=== PATIENT | male | born 1995 | race Caucasian/White ===

== ENCOUNTER 2019-08-23 17:14 | Emergency (ER) | payer OTHER, SELFPAY ==
[2019-08-23 17:34] VITALS: BP 142/79; PULSE 66; RESP 16; TEMP 36.9; O2SAT 97
--- NOTE | 2019-08-23 17:50 | ED.ABDPAIN ---
HPI - Abdominal Pain <BILLIE Mccall - Last Filed: 08/23/19 21:24> General Chief Complaint: Abdominal Pain Stated Complaint: abdominal pain, blood in stool, sent by [facility] Time Seen by Provider: 08/23/19 17:16 Source: patient Mode of arrival: Ambulatory Limitations: no limitations History of Present Illness HPI narrative: This is a 23-year-old male, former smoker, who presents to ED with chief complain of 3 day duration of mid above umbilical abdominal discomfort and he noticed small amount of dark red rectal bleeding this morning when he had loose bowel movements. Patient reports he has been drinking alcohol little too much and had vomiting asses for last 3 days. Patient has been taking [id number] omeprazole 20 mg daily for 3 days with Carafate for mL yesterday. Patient reports fever and chills which resolved after he eats. Patient denies chest pain, breathing difficulty, lightheadedness. Patient was vomiting acid this morning. Patient reports pain increases with eating acid food such as orange and when his stomach is empty. Patient reports pain improves with smoking marijuana, sitting up and eating. Patient reports has a history of stomach ulcer when he was in late teenage year from excessive alcohol drinking. Related Data Home Medications Medication Instructions Recorded Confirmed omeprazole magnesium [Prilosec OTC] 20 mg PO DAILY 08/23/19 08/23/19 sucralfate [Carafate] See Rx Instructions .ROUTE .COMPLEX 08/23/19 08/23/19 Allergies Allergy/AdvReac Type Severity Reaction Status Date / Time No Known Allergies Allergy Verified 08/23/19 17:42 Review of Systems <BILLIE Mccall - Last Filed: 08/23/19 21:24> Review of Systems Narrative: General: Denies (+) subjective fever, (+) chills, fatigue, malaise, sweats. HEENT: Denies sinus pain, ear pain, sore throat, difficulty swallowing, dizziness. Respiratory: Denies dyspnea, cough, wheezing, hemoptysis, sputum. Cardiovascular: Denies chest pain, palpitations, orthopnea, edema. Gastrointestinal: See HPI : Denies dysuria, frequency, incontinence, hematuria, urinary retention. Musculoskeletal: Denies weakness, joint pain or bony pain. Skin: Denies rash, skin lesions, or other. Neurologic: Denies weakness, headache, numbness, change in speech, confusion, seizures, incoordination. Psychiatric: No concerning psychosocial issues. 12-point review of systems is negative except for those stated above. Patient History <BILLIE Mccall - Last Filed: 08/23/19 21:24> Medical History (Updated 08/23/19 @ 20:10 by BILLIE Mccall) Gastric ulcer (Acute) Social History (Updated 08/23/19 @ 17:54 by BILLIE Mccall) Smoking Status: Former smoker alcohol intake: current substance use type: marijuana alcohol intake frequency: a few times a week Substance Use Type: does not use Exam <BILLIE Mccall - Last Filed: 08/23/19 21:24> Narrative Exam Narrative: General appearance: well developed, well nourished, in no acute distress. Head: normocephalic, atraumatic, no scalp lesions, non-tender. ENT: Hearing grossly intact. Nose without bleeding, purulent discharge or deviation. Mucous membrane moist, no mucosal lesion. Throat without erythema, tonsillar hypertrophy or exudate. Uvula in midline, airway patent. Neck/Thyroid: neck supple, full range of motion, no visible masses or meningeal signs. No JVD, non-tender without lymphadenopathy. Skin: no suspicious rashes, lesions over visible areas. Warm and dry and slightly pale in the face. Heart: no clubbing, no cyanosis, no edema. S1 and S2 normal. RRR w/o murmurs, clicks, or bruits. Lungs: Breathing even and unlabored. No stridor. No accessory muscles used. Able to speak in full sentences. Chest: normal shape and expansion. Neurologic: alert and oriented. Cognitive exam, LOGGER ALL ROUND and PNS grossly intact on informal exam. Psych: good eye contact, normal affect. Initial Vital Signs Initial Vital Signs: Vital Signs Temperature 98.4 F 08/23/19 17:34 Pulse Rate 66 08/23/19 17:34 Respiratory Rate 16 08/23/19 17:34 Blood Pressure 142/79 H 08/23/19 17:34 Pulse Oximetry 97 08/23/19 17:34 GI Palpation: soft, no hepatosplenomegaly, No hernia, No mass, No rigid and tender (mild TTP in epigastric region) Auscultation: normal bowel sounds Rectal Exam: normal sphincter tone, No fecal impaction, No fissure, heme positive stool (light color change), hemorrhoids (small external), No lesions and No mass <Azael Robb MD - Last Filed: 08/24/19 08:22> Initial Vital Signs Initial Vital Signs: Vital Signs Temperature 98.4 F 08/23/19 17:34 Pulse Rate 66 08/23/19 17:34 Respiratory Rate 16 08/23/19 17:34 Blood Pressure 142/79 H 08/23/19 17:34 Pulse Oximetry 97 08/23/19 17:34 Scores <[facility] - Last Filed: 08/23/19 21:24> GCS Hay coma scale eye opening: Spontaneous Maureen coma scale verbal response: Orientated Maureen coma scale motor response: Obey commands Maureen coma scale total score: 15 Course <[facility] - Last Filed: 08/23/19 21:24> Orders Ordered: Discontinued Medications Sodium Chloride (Normal Saline 0.9%) 1,000 mls @ 1,000 mls/hr IV BOLUS ONE Stop: 08/23/19 18:35 Last Infusion: 08/23/19 19:54 Dose: 0 mls/hr Documented by: Admin: 08/23/19 18:22 Dose: 1,000 mls/hr Documented by: VIKAS Pantoprazole Sodium (Protonix) 40 mg IV NOW ONE Stop: 08/23/19 17:37 Last Admin: 08/23/19 18:22 Dose: 40 mg Documented by: VIKAS Vital Signs Vital signs: Vital Signs - 8 hr 08/23/19 17:34 08/23/19 19:00 08/23/19 20:13 Temperature 98.4 F Pulse Rate 66 58 L 59 L Respiratory Rate 16 Blood Pressure 142/79 H Blood Pressure [Right Arm] 120/58 L 134/67 Pulse Oximetry 97 100 100 08/23/19 20:28 Temperature Pulse Rate 63 Respiratory Rate 15 Blood Pressure 134/67 Blood Pressure [Right Arm] Pulse Oximetry 99 <Azael Robb MD - Last Filed: 08/24/19 08:22> Orders Ordered: Discontinued Medications Sodium Chloride (Normal Saline 0.9%) 1,000 mls @ 1,000 mls/hr IV BOLUS ONE Stop: 08/23/19 18:35 Last Infusion: 08/23/19 19:54 Dose: 0 mls/hr Documented by: Admin: 08/23/19 18:22 Dose: 1,000 mls/hr Documented by: VIKAS Pantoprazole Sodium (Protonix) 40 mg IV NOW ONE Stop: 08/23/19 17:37 Last Admin: 08/23/19 18:22 Dose: 40 mg Documented by: VIKAS Vital Signs Vital signs: Vital Signs - 8 hr 08/23/19 17:34 08/23/19 19:00 08/23/19 20:13 Temperature 98.4 F Pulse Rate 66 58 L 59 L Respiratory Rate 16 Blood Pressure 142/79 H Blood Pressure [Right Arm] 120/58 L 134/67 Pulse Oximetry 97 100 100 08/23/19 20:28 Temperature Pulse Rate 63 Respiratory Rate 15 Blood Pressure 134/67 Blood Pressure [Right Arm] Pulse Oximetry 99 MDM - Abdominal Pain <Layo BILLIE Fritz - Last Filed: 08/23/19 21:24> Differential Diagnosis Differential diagnosis: Likely abdominal pain, gastroenteritis and other (gastritis, hemorroids, anal fissure, lower GIB, gasteroenteritis) Medical Records Attestation: I reviewed the patient's medical records. Lab Data Attestation: I reviewed the patient's lab results. Result diagrams: 08/23/19 18:17 08/23/19 18:17 Labs: Lab Results 08/23/19 08/23/19 08/23/19 Range/Units 18:17 18:17 18:17 WBC 5.4 (4.5-11.0) X10^3/uL RBC 5.50 (4.5-5.9) X10^6/uL Hgb 16.7 (13.5-17.5) g/dL Hct 48.8 (41-53) % MCV 88.7 (80-100) fL MCH 30.4 (26-34) PG MCHC 34.3 (30-36) % RDW 13.3 (11.6-14.8) % Plt Count 175 (150-400) X10^3/uL Neut % (Auto) 65.5 (50-75) % Lymph % (Auto) 22.1 L (25-40) % Glades % (Auto) 7.2 (3-14) % Eos % (Auto) 4.8 H (2-4) % Baso % (Auto) 0.4 (0-2) % Neut # (Auto) 3600 (5962-6945) /uL Lymph # (Auto) 1200 (0503-7008) /uL Glades # (Auto) 400 (0-900) /uL Eos # (Auto) 300 (0-450) /uL Baso # (Auto) 0 (0-100) /uL PT 12.6 (10.1-12.7) SECONDS INR 1.1 (0.9-1.3) APTT 33 (26.4-36.2) SECONDS Sodium 140 (137-145) mmol/L Potassium 4.5 (3.4-5.1) mmol/L Chloride 101 (98-107) mmol/L Carbon Dioxide 28 (22-32) mmol/L BUN 10 (9-20) mg/dL Creatinine 0.70 (0.66-1.25) mg/dL Estimated GFR > 60.0 (>60) mL/min BUN/Creatinine Ratio 14.3 (6-22) Glucose 105 H (70-100) mg/dL Calcium 9.9 (8.4-10.2) mg/dL Total Bilirubin 1.3 (0.2-1.3) mg/dL AST 29 (17-59) IU/L ALT 27 (<50) IU/L Alkaline Phosphatase 45 (38-126) U/L Total Protein 8.3 H (6.3-8.2) g/dL Albumin 5.1 H (3.5-5.0) g/dL Globulin 3.2 (1.7-4.1) g/dL Albumin/Globulin Ratio 1.6 (1.0-2.8) Lipase 52 (23-300) U/L Blood Type Antibody Screen 08/23/19 Range/Units 18:17 WBC (4.5-11.0) X10^3/uL RBC (4.5-5.9) X10^6/uL Hgb (13.5-17.5) g/dL Hct (41-53) % MCV (80-100) fL MCH (26-34) PG MCHC (30-36) % RDW (11.6-14.8) % Plt Count (150-400) X10^3/uL Neut % (Auto) (50-75) % Lymph % (Auto) (25-40) % Glades % (Auto) (3-14) % Eos % (Auto) (2-4) % Baso % (Auto) (0-2) % Neut # (Auto) (2030-9081) /uL Lymph # (Auto) (1167-8133) /uL Glades # (Auto) (0-900) /uL Eos # (Auto) (0-450) /uL Baso # (Auto) (0-100) /uL PT (10.1-12.7) SECONDS INR (0.9-1.3) APTT (26.4-36.2) SECONDS Sodium (137-145) mmol/L Potassium (3.4-5.1) mmol/L Chloride (98-107) mmol/L Carbon Dioxide (22-32) mmol/L BUN (9-20) mg/dL Creatinine (0.66-1.25) mg/dL Estimated GFR (>60) mL/min BUN/Creatinine Ratio (6-22) Glucose (70-100) mg/dL Calcium (8.4-10.2) mg/dL Total Bilirubin (0.2-1.3) mg/dL AST (17-59) IU/L ALT (<50) IU/L Alkaline Phosphatase (38-126) U/L Total Protein (6.3-8.2) g/dL Albumin (3.5-5.0) g/dL Globulin (1.7-4.1) g/dL Albumin/Globulin Ratio (1.0-2.8) Lipase (23-300) U/L Blood Type O Negative Antibody Screen Negative Point of care testing: Urine Dip Bedside Urine Glucose Negative Bedside Urine Bilirubin - Negative Bedside Urine Ketone ++ 40 Urine Specific Fowler 1.015 Bedside Urine Occult Blood - Negative Bedside Urine pH 6.0 Bedside Urine Protein - Negative Bedside Urine Urobilinogen - Negative Bedside Urine Nitrite - Negative Bedside Urine Leukocytes - Negative Esterase MDM Narrative Medical decision making narrative: Abdominal physical exam is benign and did not appreciate rebound tenderness, right lower quadrant discomfort, distension with active bowel sounds in 4 quadrant. Patient was afebrile with stable vital signs. There is no leukocytosis with stable H&H. Chemistry exam was unremarkable. Patient was treated with IV normal saline and pantoprazole which relieved his symptoms. Hemoccult test was positive with very faint color change. Patient reports no longer having rectal bleeding since this morning with loose stool once. There was small external hemorrhoids without fissures. Patient advised continue to use omeprazole daily and sucralfate 2 to 4 times a day 1 g each for his symptoms. Return precautions were discussed with the patient and patient advised to avoid symptom aggravating foods including alcohol. Patient provided with [facility] Resource phone number to select PCP and possible referral to GI specialist for endoscopy/colonoscopy to follow up if his symptoms persist. Patient verbalized understanding and agrees with the treatment plan. <Azael Robb MD - Last Filed: 08/24/19 08:22> Lab Data Labs: Lab Results 08/23/19 08/23/19 08/23/19 Range/Units 18:17 18:17 18:17 WBC 5.4 (4.5-11.0) X10^3/uL RBC 5.50 (4.5-5.9) X10^6/uL Hgb 16.7 (13.5-17.5) g/dL Hct 48.8 (41-53) % MCV 88.7 (80-100) fL MCH 30.4 (26-34) PG MCHC 34.3 (30-36) % RDW 13.3 (11.6-14.8) % Plt Count 175 (150-400) X10^3/uL Neut % (Auto) 65.5 (50-75) % Lymph % (Auto) 22.1 L (25-40) % Glades % (Auto) 7.2 (3-14) % Eos % (Auto) 4.8 H (2-4) % Baso % (Auto) 0.4 (0-2) % Neut # (Auto) 3600 (8680-0490) /uL Lymph # (Auto) 1200 (9378-9458) /uL Glades # (Auto) 400 (0-900) /uL Eos # (Auto) 300 (0-450) /uL Baso # (Auto) 0 (0-100) /uL PT 12.6 (10.1-12.7) SECONDS INR 1.1 (0.9-1.3) APTT 33 (26.4-36.2) SECONDS Sodium 140 (137-145) mmol/L Potassium 4.5 (3.4-5.1) mmol/L Chloride 101 (98-107) mmol/L Carbon Dioxide 28 (22-32) mmol/L BUN 10 (9-20) mg/dL Creatinine 0.70 (0.66-1.25) mg/dL Estimated GFR > 60.0 (>60) mL/min BUN/Creatinine Ratio 14.3 (6-22) Glucose 105 H (70-100) mg/dL Calcium 9.9 (8.4-10.2) mg/dL Total Bilirubin 1.3 (0.2-1.3) mg/dL AST 29 (17-59) IU/L ALT 27 (<50) IU/L Alkaline Phosphatase 45 (38-126) U/L Total Protein 8.3 H (6.3-8.2) g/dL Albumin 5.1 H (3.5-5.0) g/dL Globulin 3.2 (1.7-4.1) g/dL Albumin/Globulin Ratio 1.6 (1.0-2.8) Lipase 52 (23-300) U/L Blood Type Antibody Screen 08/23/19 Range/Units 18:17 WBC (4.5-11.0) X10^3/uL RBC (4.5-5.9) X10^6/uL Hgb (13.5-17.5) g/dL Hct (41-53) % MCV (80-100) fL MCH (26-34) PG MCHC (30-36) % RDW (11.6-14.8) % Plt Count (150-400) X10^3/uL Neut % (Auto) (50-75) % Lymph % (Auto) (25-40) % Glades % (Auto) (3-14) % Eos % (Auto) (2-4) % Baso % (Auto) (0-2) % Neut # (Auto) (2364-5987) /uL Lymph # (Auto) (3030-6000) /uL Glades # (Auto) (0-900) /uL Eos # (Auto) (0-450) /uL Baso # (Auto) (0-100) /uL PT (10.1-12.7) SECONDS INR (0.9-1.3) APTT (26.4-36.2) SECONDS Sodium (137-145) mmol/L Potassium (3.4-5.1) mmol/L Chloride (98-107) mmol/L Carbon Dioxide (22-32) mmol/L BUN (9-20) mg/dL Creatinine (0.66-1.25) mg/dL Estimated GFR (>60) mL/min BUN/Creatinine Ratio (6-22) Glucose (70-100) mg/dL Calcium (8.4-10.2) mg/dL Total Bilirubin (0.2-1.3) mg/dL AST (17-59) IU/L ALT (<50) IU/L Alkaline Phosphatase (38-126) U/L Total Protein (6.3-8.2) g/dL Albumin (3.5-5.0) g/dL Globulin (1.7-4.1) g/dL Albumin/Globulin Ratio (1.0-2.8) Lipase (23-300) U/L Blood Type O Negative Antibody Screen Negative Point of care testing: Urine Dip Bedside Urine Glucose Negative Bedside Urine Bilirubin - Negative Bedside Urine Ketone ++ 40 Urine Specific Fowler 1.015 Bedside Urine Occult Blood - Negative Bedside Urine pH 6.0 Bedside Urine Protein - Negative Bedside Urine Urobilinogen - Negative Bedside Urine Nitrite - Negative Bedside Urine Leukocytes - Negative Esterase Discharge Plan Departure Patient Disposition: Home Clinical Impression: GI (gastrointestinal hemorrhage) Qualifiers: GI bleed type/associated pathology: unspecified gastrointestinal hemorrhage type Qualified Code(s): K92.2 - Gastrointestinal hemorrhage, unspecified Acute gastritis Qualifiers: Gastritis type: unspecified gastritis Gastritis bleeding: presence of bleeding unspecified Qualified Code(s): K29.00 - Acute gastritis without bleeding Discharge Date/Time: 08/23/19 20:29 Instructions: DI for Gastritis, Gastrointestinal Bleeding Activity Restrictions/Additional Instructions: You have been diagnosed with [gastritis and GI bleed per rectal exam. Your blood count today was within normal without anemia. Chemistry test was unremarkable with normal bleeding factors.]. What to do: *Take your medications as directed. You were medicated with Protonix and IV fluid while in ED which helped your symptoms. Please continue to take Prilosec daily. Eat small meals regularly. Please avoid foods that can cause irritation to her stomach such as acidic, fatty food, alcohol or caffeine. You can also take sucralfate 2 to 4 times a day 1 hour before meals and at bedtime. *Follow up with your primary care provider in 2-3 days, call for an appointment. Let them know you were seen in the ED and that we asked you to be seen in follow up. If your symptoms persist you probably need a referral to GI specialist for EGD/colonoscopy procedure done. *Return to ED if you have any new, worsening, or concerning symptoms, such as [chest pain, breathing difficulty, dizziness, unable to tolerate fluids, fever, vomiting blood or blood in her stool or any acute concerns]. Prescriptions: No Action sucralfate [Carafate] 1 gram Tablet See Rx Instructions .ROUTE .COMPLEX RF: 0 Prilosec OTC 20 mg Tablet,Delayed Release (Dr/Ec) 20 mg PO DAILY RF: 0 Referrals: [facility] [Outside] Stand Alone Forms: Work Release Note
[2019-08-23] MEDS: SODIUM CHLORIDE 0.9% 1,000 ML 1000 ML IV (18:22)
[2019-08-23] MEDS: PANTOPRAZOLE 40 MG VIAL IV (18:22)
[2019-08-23 18:30] LABS: Add Manual Diff / Slide Review NO; Basophils Absolute Auto 0 /uL (0-100); Basophils Percent Auto 0.4 % (0-2); Eosinophils Absolute Auto 300 /uL (0-450); Eosinophils Percent Auto 4.8 % (2-4); Hematocrit 48.8 % (41-53); Hemoglobin 16.7 g/dL (13.5-17.5); Lymphocytes Absolute Auto 1200 /uL (1100-4500); Lymphocytes Percent Auto 22.1 % (25-40); Mean Corpuscular HGB Conc 34.3 % (30-36); Mean Corpuscular Hemoglobin 30.4 PG (26-34); Mean Corpuscular Volume 88.7 fL (80-100); Monocytes Absolute Auto 400 /uL (0-900); Monocytes Percent Auto 7.2 % (3-14); Neutrophils Absolute Auto 3600 /uL (1500-7000); Neutrophils Percent Auto 65.5 % (50-75); Platelet Count 175 X10^3/uL (150-400); Red Cell Distribution Width 13.3 % (11.6-14.8); White Blood Cell Count 5.4 X10^3/uL (4.5-11.0)
[2019-08-23 18:40] LABS: INR 1.1 (0.9-1.3); Prothrombin Time 12.6 SECONDS (10.1-12.7)
[2019-08-23 18:41] LABS: Alanine Aminotransferase 27 IU/L (<50); Albumin 5.1 g/dL (3.5-5.0); Albumin Globulin Ratio 1.6 (1.0-2.8); Alkaline Phosphatase 45 U/L (38-126); Aspartate Aminotransferase 29 IU/L (17-59); BUN Creatinine Ratio 14.3 (6-22); Bilirubin Total 1.3 mg/dL (0.2-1.3); Blood Urea Nitrogen 10 mg/dL (9-20); Calcium 9.9 mg/dL (8.4-10.2); Carbon Dioxide 28 mmol/L (22-32); Chloride 101 mmol/L (98-107); Estimated Glomerular Filt Rate > 60.0 mL/min (>60); Globulin 3.2 g/dL (1.7-4.1); Glucose 105 mg/dL (70-100); HEMOLYSIS < 15 (0-50); Lipase 52 U/L (23-300); Potassium 4.5 mmol/L (3.4-5.1); Sodium 140 mmol/L (137-145); Total Protein 8.3 g/dL (6.3-8.2)
[2019-08-23 18:43] LABS: PTT Partial Thromboplastin Tim 33 SECONDS (26.4-36.2)
[2019-08-23 19:00] VITALS: BP 120/58; PULSE 58; O2SAT 100
[2019-08-23 20:13] VITALS: BP 134/67; PULSE 59; O2SAT 100
[2019-08-23 20:28] VITALS: BP 134/67; PULSE 63; RESP 15; O2SAT 99
== END 2019-08-23 20:29 | disposition home or self-care (01) ==
PROVIDERS: Emergency Medicine; Emergency Provider Nurse Practitioner Family
DX: K92.2 Gastrointestinal hemorrhage, unspecified (principal); K29.00 Acute gastritis without bleeding
CPT/HCPCS: 36415; 80053; 81003; 83690; 85025; 85610; 85730; 86850; 86900; 86901; 96361; 96374; 99284; C9113